=== PATIENT | female | born 1960 | race Caucasian/White ===

== ENCOUNTER 2019-11-22 17:01 | Emergency (ER) | payer BC, OTHER ==
[2019-11-22 17:13] VITALS: BP 145/75; PULSE 68
[2019-11-22] MEDS ORDERED: Acetaminophen 325 MG Tab PO ONE (17:37)
--- NOTE | 2019-11-22 18:59 | EDM.PDOC ---
ED HPI GENERAL MEDICAL PROBLEM - General Chief Complaint: Laceration Stated Complaint: tripped fell right side head laceration rib pain Time Seen by Provider: 11/22/19 17:28 Source of Information: Reports: Patient, RN Notes Reviewed - History of Present Illness INITIAL COMMENTS - FREE TEXT/NARRATIVE: 59 year old female tripped walking on sidewalk. Came down on both hands and also hit R forehead and nose. R hand hurts the most, nose also uncomfortable. No LOC, may have been briefly dazed. Mild David. No neck or back pain. No chest pain or difficulty breathing. Last tetanus about 6 yrs ago. 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, Musculoskeletal History: Reports: None Neurological History: Reports: None Psychiatric History: Reports: None Endocrine/Metabolic History: Reports: None Hematologic History: Reports: None Immunologic History: Reports: None Oncologic (Cancer) History: Reports: None Dermatologic History: Reports: None - Past Surgical History HEENT Surgical History: Reports: Tonsillectomy Social & Family History - Tobacco Use Smoking Status *Q: Never Smoker - Caffeine Use Caffeine Use: Reports: Soda - Recreational Drug Use Recreational Drug Use: No ED ROS GENERAL - Review of Systems Review Of Systems: See Below Constitutional: Reports: No Symptoms HEENT: Reports: Nose Pain. Denies: Ear Discharge, Ear Pain Respiratory: Denies: Shortness of Breath Cardiovascular: Denies: Chest Pain GI/Abdominal: Denies: Abdominal Pain, Nausea, Vomiting Musculoskeletal: Reports: Hand Pain. Denies: Neck Pain, Shoulder Pain, Arm Pain Skin: Denies: Bruising Neurological: Reports: Headache (very mild). Denies: Numbness, Tingling, Trouble Speaking, Difficulty Walking, Weakness ED EXAM, SKIN/RASH Exam: See Below General Appearance: Alert, Mild Distress Eye Exam: Bilateral Eye: PERRL Nose: Nasal Tenderness, Nasal Swelling, Other (prior bleeding L nares, no active bleeding at time of exam) Throat/Mouth: Normal Inspection Head: Other (there is nasal tenderness, face otherwise nontender, small abrasion R forehead). No: Facial Swelling Neck: Supple, Non-Tender Respiratory/Chest: No Respiratory Distress, Lungs Clear, Normal Breath Sounds Cardiovascular: Regular Rate, Rhythm Extremities: Other (There is tenderness, mild superfiscial abrasion R hand) Neurological: Alert, Oriented, No Motor/Sensory Deficits Skin: Warm, Dry, Normal Color Associated features: Warmth, Tenderness Course - Vital Signs Last Recorded V/S: Last Vital Signs Temp 96.6 F L 11/22/19 17:12 Pulse 68 11/22/19 17:12 Resp 18 11/22/19 17:12 BP 145/75 H 11/22/19 17:12 Pulse Ox 94 L 11/22/19 17:12 - Orders/Labs/Meds Orders: Active Orders 24 hr Category Date Time Status Hand Comp Min 3V Rt [CR] Stat Exams 11/22/19 17:37 Taken Nasal Bone Min 3V [CR] Stat Exams 11/22/19 17:37 Taken Meds: Medications Discontinued Medications Generic Name Dose Route Start Last Admin Trade Name Freq PRN Reason Stop Dose Admin Acetaminophen 975 mg 11/22/19 17:37 11/22/19 18:13 Tylenol PO 11/22/19 17:38 975 mg NOW ONE Administration - Re-Assessments/Exams Free Text/Narrative Re-Assessment/Exam: 11/22/19 19:18 X rays of hand are neg for fx. Nose looks like distal hairline fx, nondisplaced. She continues to have minimal David, it is now about gone after tylenol, hand still major discomfort, discharge instr. as documented. Departure - Departure Time of Disposition: 18:57 Disposition: Home, Self-Care 01 Condition: Fair Clinical Impression: Fall, Hand contusion, Nasal bone fracture - Discharge Information Instructions: Contusion, [id number] Referrals: Teo Levin MD [Primary Care Provider] - Forms: ED Department Discharge Additional Instructions: Rest, ice packs and elevation as needed for swelling. Tylenol q 6 to 8 hr as needed for discomfort. Follow up clinic if not much better within 5 to days as expected. Sepsis Event Note - Evaluation Sepsis Screening Result: No Definite Risk - Focused Exam Vital Signs: Vital Signs Temp Pulse Resp BP Pulse Ox 11/22/19 17:12 96.6 F L 68 18 145/75 H 94 L Date Exam was Performed: 11/22/19 Time Exam was Performed: 20:25 - My Orders Last 24 Hours: My Active Orders 11/22/19 17:37 Hand Comp Min 3V Rt [CR] Stat Nasal Bone Min 3V [CR] Stat - Assessment/Plan Last 24 Hours: My Active Orders 11/22/19 17:37 Hand Comp Min 3V Rt [CR] Stat Nasal Bone Min 3V [CR] Stat
--- NOTE | 2019-11-23 06:04 | CR ---
Nasal bone: 3 views of the nasal bone were obtained. Comparison: No prior nasal bone study. Fracture is noted within the tip of the nasal bone. No additional abnormality is seen. Impression: 1. Fracture involving the tip of the nasal bone. Diagnostic code #3 This report was dictated in [facility]
--- NOTE | 2019-11-23 06:04 | CR ---
Right hand: 4 views of the right hand were obtained. Comparison: No prior hand exam. Joint spaces are preserved. No acute fracture, dislocation or other bony abnormality is appreciated. Impression: 1. No abnormality is identified on right hand exam. Diagnostic code #1 This report was dictated in MDT
== END 2019-11-22 19:07 | disposition home or self-care (01) ==
LOC: JD.ED 17:01
DX: S02.2XXA Fracture of nasal bones, initial encounter for closed fracture (principal); S60.221A Contusion of right hand, initial encounter; S00.81XA Abrasion of other part of head, initial encounter; Z88.5 Allergy status to narcotic agent; W01.0XXA Fall on same level from slipping, tripping and stumbling without subsequent striking against object, initial encounter
CPT/HCPCS: 70160; 73130; 99283; A9270